=== PATIENT | male | born 1945 | race Caucasian/White ===

== ENCOUNTER 2017-01-18 11:17 | Emergency (ER) | payer MEDICARE ==
--- NOTE | 2017-01-18 12:06 | CT REPORT ---
HISTORY: Fall, rib pain. COMPARISON: None. TECHNIQUE: This examination was performed using automated exposure control, adjustment of mA or kV according to patient size, and/or use of iterative reconstruction technique. Axial non-contrast enhanced images ob tained from thoracic inlet through upper abdomen. FINDINGS: Heart and mediastinum: No mediastinal or hilar adenopathy. Calcific atherosclerosis involving the cor onary arteries. The heart is enlarged. Lungs: No consolidation or pulmonary nodule. Pleura: No effusion or pneumothorax. Upper abdomen: Nonobstructing right upper pole nephrolithiasis. Small fat-containing umbilical hernia . Bones: Right posterior lateral 10th and 11th rib fractures. IMPRESSION: 1. Minimal displaced right posterior lateral 10th and 11th rib fractures. 2. No evidence of pneumothorax or pulmonary contusion. 3. Cardiomegaly. 4. Right-sided nephrolithiasis. Final Electronic Signature: This report was electronically signed by Xu Smith MD on 01/18/2017 12:04 PM. [email or web address] /
--- NOTE | 2017-01-18 12:51 | ER NURSING DOCUMENTATION ---
Nurse's Notes [facility] Name:Chau Meléndez Age:71 yrs Sex:Male :1945 Arrival Date:01/18/2017 Time:11:17 Bed6 Private MD: Diagnosis:Rib Fracture, Closed, Two Presentation: 01/18 11:22 Acuity: JOSE 3 sc1 11:27 Presenting complaint: Patient states: fell backward while hiking striking his right sc1 flank on a rock and has an abrasion above his right ankle. Transition of care: patient was not received from another setting of care. Notified ED Physician of patient's arrival and CC Dr. Shelby notified. 11:27 Method Of Arrival: Private Vehicle sc1 Triage Assessment: 11:32 General: Appears in no apparent distress, well developed, well nourished, well groomed, sc1 Behavior is cooperative, pleasant. Pain: Complains of pain in right mid back. 11:33 Pain: Complains of pain in left upper quadrant. Musculoskeletal: Circulation, motion, sc1 and sensation intact Capillary refill < 3 seconds. Historical: - Allergies: IODINEIODINE CONTAINING; - Home Meds: 1. Crestor oral 2. Enalapril Oral 3. Toprol XL Oral 4. Xarelto oral - PMHx: ATRIAL FIB; - PSHx: None; - Ebola Screening: : Patient negative for fever greater than or equal to 101.5 degrees Fahrenheit, and additional compatible Ebola Virus Disease symptoms. Patient denies exposure to infectious person. Patient denies travel to an Ebola-affected area in the 21 days before illness onset. No symptoms or risks identified at this time. . - Immunization history: Flu Vaccine None. - Social history: Smoking status: Patient states was never smoker of tobacco. Patient/guardian denies using alcohol, street drugs, IV drugs, marijuana. Screenin:33 Infectious Disease Risk None. Abuse screen: Denies threats or abuse. Nutritional sc1 screening: No deficits noted. Vital Signs: 11:27 BP 120 / 90 LA Sitting (auto/reg); Pulse 92 RA; Resp 16 S; Temp 98.1(O); Pulse Ox 94% em3 on R/A; Weight 86.18 kg (R); Height 5 ft. 11 in. (180.34 cm) (R); Pain 9/10; 12:50 BP 122 / 80; Pulse 88; Resp 15; Pulse Ox 95% on R/A; rh 11:27 Body Mass Index 26.50 (86.18 kg, 180.34 cm) em3 ED Course: 11:18 Patient arrived in ED. ama 11:22 Maria A Olguin RN is Primary Nurse. sc1 11:22 Triage completed. sc1 11:24 Neil Shelby MD is Attending Physician. ma 11:28 Valuables Remains with patient Patient has correct armband on for positive em3 identification. Bed in low position. Call light in reach. Side rails up X 1. 11:35 Urine collected. Clean catch specimen. em3 11:[address] hz 11:56 Patient moved back from [place]. Administered Medications: No medications were administered Point of Care Testing: Urine Dip: 11:39 pH: 5.0; ; Specific [place]: 1.020; Ketones: Negative; Glucose: Negative; Protein: em3 Negative; Leukocytes: Negative; Nitrite: Negative ; Blood: Non Hemolyzed Trace; Bilirubin: Negative ; Urobilinogen: Normal Outcome: 12:35 Discharge ordered by . ma 12:50 Discharged to home via wheelchair, with friend. 12:50 Condition: stable 12:50 Discharge Assessment: Patient awake, alert and oriented x 3. No cognitive and/or functional deficits noted. Patient verbalized understanding of disposition instructions. 12:50 Discharge instructions given to patient, friend, Instructed on discharge instructions, follow up and referral plans. Incentive Spirometer medication usage, no drinking with medication, no driving heavy equipment, Demonstrated understanding of instructions, medications, Prescriptions given X 1. 12:51 Patient left the ED. 01/19 10:30 Discharge F/U Call: Unable to reach: no answer 01/20 09:30 Discharge F/U Call: Unable to reach: no answer st Signatures: Viki Martines RN RN st Campbell, Sandy, RN RN ma1 Neil Shelby MD MD ma Gee Alcantar em3 Odell Hurst, Margaret Gil Debbi Shafer
--- NOTE | 2017-01-18 12:51 | ER PHYSICIAN DOCUMENTATION ---
Physician Documentation [facility] Name:Chau Meléndez Age:71 yrs Sex:Male :1945 Arrival Date:01/18/2017 Time:11:17 Bed6 Private MD: Neil Joe Disposition: 01/18/17 12:35 Discharged to Home/Self Care. Impression: Rib Fracture, Closed, Two. - Condition is Good. - Discharge Instructions: Fractures, Rib - FRACTURE, Rib. - Prescriptions for Hydrocodone- Acetaminophen 5-325 mg Oral Tablet - take 1 tablet by ORAL route every 6 hours As needed; 20 tablet. - Medical Reconciliation form form. - Follow up: Private Physician; When: 4- 6 days; Reason: Recheck today's complaints. - Problem is new. - Symptoms are unchanged. HPI: 01/18 12:25 This 71 yrs old Male presents to ER via Private Vehicle with complaints of sc Back Injury. 12:25 The patient presents with pain and an injury. The symptoms are located in the mid back sc area. Onset: The symptoms/episode began/occurred just prior to arrival. The pain does not radiate. Associated signs and symptoms: Pertinent positives: abrasions. The problem was sustained outdoors. Historical: - Allergies: IODINEIODINE CONTAINING; - Home Meds: 1. Crestor oral 2. Enalapril Oral 3. Toprol XL Oral 4. Xarelto oral - PMHx: ATRIAL FIB; - PSHx: None; - Ebola Screening: : Patient negative for fever greater than or equal to 101.5 degrees Fahrenheit, and additional compatible Ebola Virus Disease symptoms. Patient denies exposure to infectious person. Patient denies travel to an Ebola-affected area in the 21 days before illness onset. No symptoms or risks identified at this time. . - Immunization history: Flu Vaccine None. - Social history: Smoking status: Patient states was never smoker of tobacco. Patient/guardian denies using alcohol, street drugs, IV drugs, marijuana. ROS: 12:26 Constitutional: Negative for fever, chills, and weight loss. sc Eyes: Negative for injury, pain, redness, and discharge. ENT: Negative for injury, pain, and discharge. Neck: Negative for injury, pain, and swelling. Cardiovascular: Negative for chest pain, palpitations, and edema. Respiratory: Negative for shortness of breath, cough, wheezing, and pleuritic chest pain. Abdomen/GI: Negative for abdominal pain, nausea, vomiting, diarrhea, and constipation. MS/Extremity: Negative for injury and deformity. Skin: Negative for injury, rash, and discoloration. 12:26 Neuro: Negative for headache, weakness, numbness, tingling, and seizure. sc 12:26 Back: Positive for injury or acute deformity, decreased range of motion, pain with movement. 12:26 MS/extremity: Negative for abrasion. Exam: Constitutional: This is a well developed, well nourished patient who is awake, alert, and in no acute distress. Head/Face: Normocephalic, atraumatic. Eyes: Pupils equal round and reactive to light, extra-ocular motions intact. Lids and lashes normal. Conjunctiva and sclera are non-icteric and not injected. Cornea within normal limits. Periorbital areas with no swelling, redness, or edema. ENT: Nares patent. No nasal discharge, no septal abnormalities noted. Tympanic membranes are normal and external auditory canals are clear. Oropharynx with no redness, swelling, or masses, exudates, or evidence of obstruction, uvula midline. Mucous membranes moist. Neck: Trachea midline, no thyromegaly or masses palpated, and no cervical lymphadenopathy. Supple, full range of motion without nuchal rigidity, or vertebral point tenderness. No meningismus. Chest/axilla: Normal chest wall appearance and motion. Nontender with no deformity. No lesions are appreciated. Cardiovascular: Regular rate and rhythm with a normal S1 and S2. No gallops, murmurs, or rubs. Normal PMI, no JVD. No pulse deficits. Respiratory: Lungs have equal breath sounds bilaterally, clear to auscultation and percussion. No rales, rhonchi or wheezes noted. No increased work of breathing, no retractions or nasal flaring. 12:26 Abdomen/GI: Soft, non-tender, with normal bowel sounds. No distension or tympany. No sc guarding or rebound. No evidence of tenderness throughout. 12:26 Back: pain, that is moderate, ROM is normal, painful, normal spinal alignment noted, CVA tenderness, is noted on the right, vertebral tenderness, is not appreciated, Straight leg raises: of both lower extremities does not illicit pain. 12:37 Neuro: Sensation: is normal, Gait: is steady, Deep tendon reflexes are 2+ (normal) in sc the right brachioradialis, right patellar, left brachioradialis and left patellar. Vital Signs: 11:27 BP 120 / 90 LA Sitting (auto/reg); Pulse 92 RA; Resp 16 S; Temp 98.1(O); Pulse Ox 94% em3 on R/A; Weight 86.18 kg (R); Height 5 ft. 11 in. (180.34 cm) (R); Pain 9/10; 12:50 BP 122 / 80; Pulse 88; Resp 15; Pulse Ox 95% on R/A; rh 11:27 Body Mass Index 26.50 (86.18 kg, 180.34 cm) em3 MDM: 11:24 Patient medically screened. ri 12:27 Differential diagnosis: Fracture ruptured disc, spinal injury, vertebral fracture. Data sc reviewed: vital signs, nurses notes, lab test result(s), radiologic studies, CT scan, and as a result, I will. Counseling: I had a detailed discussion with the patient and/or guardian regarding: the historical points, exam findings, and any diagnostic results supporting the discharge/admit diagnosis, lab results, radiology results, the need for outpatient follow up, to return to the emergency department if symptoms worsen or persist or if there are any questions or concerns that arise at home. Response to treatment: the patient's symptoms have mildly improved after treatment. 01/18 12:08 Order name: CAT SCAN; CHEST W/O CON [id number]; Complete Time: 12:25 EDMT 01/18 12:25 Interpretation: Abnormal. ri 01/18 11:30 Order name: Urine Dip; Complete Time: 12:50 ri 01/18 12:50 Order name: Incentive Spirometer; Complete Time: 12:50 Dispensed Medications: No medications were administered Point of Care Testing: Urine Dip: 11:39 pH: 5.0; ; Specific [place]: 1.020; Ketones: Negative; Glucose: Negative; Protein: em3 Negative; Leukocytes: Negative; Nitrite: Negative ; Blood: Non Hemolyzed Trace; Bilirubin: Negative ; Urobilinogen: Normal Signatures: Maria A Olguin RN RN [facility] Neil Shelby MD MD [facility] DothanMargaret guerrero
== END 2017-01-18 12:51 | disposition home or self-care (01) ==
LOC: ER 11:17
DX: S22.41XA Multiple fractures of ribs, right side, initial encounter for closed fracture (principal); S90.511A Abrasion, right ankle, initial encounter; W19.XXXA Unspecified fall, initial encounter; Y92.838 Other recreation area as the place of occurrence of the external cause; Y93.01 Activity, walking, marching and hiking; I48.91 Unspecified atrial fibrillation; Z79.01 Long term (current) use of anticoagulants; Z79.899 Other long term (current) drug therapy
CPT/HCPCS: 71250; 99284